=== PATIENT | female | born 1995 | race Native Hawaiian/Other Pacific Islander ===

== ENCOUNTER 2016-10-20 06:39 | Emergency (ER) | payer OTHER ==
[~2016-10-20] VITALS: Ht 160 cm; Wt 54.5 kg
[~2016-10-20 06:39] MED LIST: CYCL-36 PO; DICL50 PO; LO LTAB PO
[2016-10-20 06:41] VITALS: BP 116/75; PULSE 65; RESP 16; TEMP 98.3; O2SAT 100
--- NOTE | 2016-10-20 07:10 | PD ---
HPI . needle stick Chief Complaint: Exposure to Blood/Body Fluids Time Seen by Provider: 07:09 Travel History International Travel<30 days: No Contact w/Intl Traveler<30days: No Traveled to known affect area: No History of Present Illness HPI 20-year-old female who works here at [employer] here with complaints of left ring finger needle exposure. Apparently patient's finger accidentally brushed up against a needle. She says there was no blood coming out of the site, but there appeared to be a small scratch. She has no specific complaints. PFSH Past Medical History Diminished Hearing: No Immunizations Current: Yes Tetanus Vaccination: < 5 Years Influenza Vaccination: Yes ?: Not LMP: 10/06/16 Social History Alcohol Use: No Tobacco Use: No Substance Use: No Allergies-Medications (Allergen,Severity, Reaction): Coded Allergies: No Known Allergies (Verified , 10/20/16) Reported Meds & Prescriptions Reported Meds & Active Scripts Active No Active Prescriptions or Reported Medications Review of Systems General / Constitutional: No: Fever Eyes: No: Visual changes HENT: No: Headaches Cardiovascular: No: Chest Pain or Discomfort Respiratory: No: Shortness of Breath Gastrointestinal: No: Abdominal Pain Genitourinary: No: Dysuria Musculoskeletal: No: Pain Skin: No Rash Neurologic: No: Weakness Psychiatric: No: Depression Endocrine: No: Polydipsia Hematologic/Lymphatic: No: Easy Bruising Physical Exam Narrative GENERAL: AAO x 3, no acute distress, Well-nourished, well-developed patient. SKIN: Warm and dry. No visible rashes or bruising. no significant abnormality HEAD: Normocephalic and atraumatic. EYES: No scleral icterus. No injection or drainage. EOM intact, PERRLA ENT: No nasal drainage noted. Mucous membranes pink. Airway patent. NECK: Supple, trachea midline. No JVD. CARDIOVASCULAR: Regular rate and rhythm without murmurs, gallops, or rubs. RESPIRATORY: Breath sounds equal bilaterally. No accessory muscle use. No rhonchi or rales. GASTROINTESTINAL: visual inspection normal EXTREMITIES: No cyanosis or edema. BACK: No obvious deformity. NEURO: CN II-12 intact, content editor strength normal b/l, UE and LE 5/5, no focal deficits PSYCH: AAO x 3, normal affect. Data Data Last Documented VS Vital Signs Date Time Temp Pulse Resp B/P Pulse Ox O2 Delivery O2 Flow Rate FiO2 10/20/16 07:15 97.8 78 16 102/68 100 10/20/16 06:41 Room Air MDM Medical Decision Making Medical Screen Exam Complete: Yes Emergency Medical Condition: Yes Medical Record Reviewed: Yes Differential Diagnosis Needlestick, blood exposure, exposure to hepatitis, exposure to HIV Narrative Course 20-year-old female here with an exposure to a needle. On examination there are no gross abnormalities. I've had a discussion with patient and do not recommend prophylactic treatment with HIV medications. Patient is in agreement. We will proceed with protocol testing of the patient in source patient and have [employer] contact the patient. Diagnosis Primary Impression: Needle stick injury Additional Instructions: [employer] will contact you regarding test results. Scripts No Active Prescriptions or Reported Meds Disposition: 01 DISCHARGE HOME Condition: Stable Vee Rivera Oct 20, 2016 07:10
[2016-10-20 07:15] VITALS: BP 102/68; TEMP 97.8
== END 2016-10-20 07:15 | disposition home or self-care (01) ==
LOC: NEPD 06:39
DX: S60.415A Abrasion of left ring finger, initial encounter (principal); Z20.9 Contact with and (suspected) exposure to unspecified communicable disease; W46.1XXA Contact with contaminated hypodermic needle, initial encounter; Y92.239 Unspecified place in hospital as the place of occurrence of the external cause; Y99.0 Civilian activity done for income or pay
CPT/HCPCS: 99281

== ENCOUNTER 2016-12-12 22:40 | Emergency (ER) | payer OTHER ==
[2016-12-12 22:42] VITALS: BP 126/71; PULSE 73; RESP 16; TEMP 98; O2SAT 100
--- NOTE | 2016-12-13 02:45 | PD ---
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 She was on the floor drawing blood from a patient when she accidentally stuck herself in the right little finger with the Vacutainer needle. It was a 22-gauge needle. She states that it punctured through her skin and blood. She squeezed the area and wash it with soap and water and medially. Patient's up-to-date with immunizations. She is immunized against hepatitis B. The incident report was not filed by the Department at the time of presentation to the ER. The patient denies any other injuries. No numbness, tingling or weakness. PFSH Past Medical History Medical History: Denies Significant Hx Diminished Hearing: No Immunizations Current: Yes Tetanus Vaccination: < 5 Years Past Surgical History Surgical History: No Previous Surgery Social History Alcohol Use: No Tobacco Use: No Substance Use: No Allergies-Medications (Allergen,Severity, Reaction): Coded Allergies: No Known Allergies (Verified , 10/20/16) Reported Meds & Prescriptions Reported Meds & Active Scripts Active No Active Prescriptions or Reported Medications Review of Systems Except as stated in HPI: all other systems reviewed are Neg Physical Exam Narrative GENERAL: This is a well-nourished, well-developed patient, in no apparent distress. SKIN: No rashes, ecchymoses or lesions. Warm and dry. HEAD: Atraumatic. Normocephalic. EYES: PERRL, EOMI, no discharge or injection. No scleral icterus. EARS: Clear NOSE: Nasal turbinates appear normal. THROAT: Mucosa pink and moist. Airway patent. NECK: Trachea midline. supple, moves head freely. LUNGS: Clear to auscultation. CV: Regular in rhythm. ABDOMEN: Soft nontender. EXT: No clubbing cyanosis or edema. Small puncture wound to the mid phalanx of the right little finger Data Data Last Documented VS Vital Signs Date Time Temp Pulse Resp B/P (MAP) Pulse Ox O2 Delivery O2 Flow Rate FiO2 12/12/16 22:42 98.0 73 16 126/71 (89) 100 MDM Medical Decision Making Medical Screen Exam Complete: Yes Emergency Medical Condition: Yes Medical Record Reviewed: Yes Differential Diagnosis Differential diagnosis: Needlestick blood exposure, abrasion, contusion, HIV, hepatitis Narrative Course The patient presents to the ER without her building custodial supervisor filling out her exposure packet. In his report has been filled out and sent back to her department. The source patient's blood is in the lab and will be brought in for HIV. The patient is up-to-date with immunizations. Post exposure prophylaxis is not indicated this time. The patient will be sent back to work and will be notified when the source patient blood comes back. If the source patient's blood is positive post exposure prophylaxis may be given. This is needlestick blood exposure Diagnosis Primary Impression: Needle stick injury Additional Impression: Exposure to blood Additional Instructions: Rest. Daily wound care with soap, water, Neosporin. Follow-up with employee med. Return to the ER for any problems. Med/Other Pt SpecificInfo: Wound Care Scripts No Active Prescriptions or Reported Meds Disposition: 01 DISCHARGE HOME Condition: Negro Rudolph Dec 13, 2016 02:45
== END 2016-12-13 03:00 | disposition home or self-care (01) ==
LOC: NEPD 22:40
DX: Z77.21 Contact with and (suspected) exposure to potentially hazardous body fluids (principal); W46.1XXA Contact with contaminated hypodermic needle, initial encounter; Y93.F9 Activity, other caregiving; Y92.230 Patient room in hospital as the place of occurrence of the external cause; Y99.0 Civilian activity done for income or pay
CPT/HCPCS: 99281